=== PATIENT | male | born 1990 | race Caucasian/White ===

== ENCOUNTER 2017-04-21 12:26 | Emergency (ER) | payer OTHER ==
[~2017-04-21] VITALS: Ht 172.7 cm; Wt 101.6 kg
[2017-04-21] MEDS ORDERED: LEXAPRO10 MG ORAL (13:16)
[2017-04-21 13:31] VITALS: BP 125/80
--- NOTE | 2017-04-21 16:36 | Emergency Room Report ---
History of Present Illness General Chief Complaint: General Complaint Source: Patient Present Illness [facility] The patient is a 26 yo M presenting for feeling of depression and anxiety after of his brother which occurred 3 days prior. He denies any medical history including psychiatric history. He states that he has not been able to sleep, lost interest in daily activities, decreased appetite, has been feeling hopeless , and is feeling guilty as this occurred during his own bachelor constitution party. He denies feelings of SI, SOB, CP Allergies: Coded Allergies: No Known Allergies (Unverified , 04/21/17) Patient History Past Medical History: see triage record Pertinent Family History: none Reviewed Nursing Documentation: PMH: Agreed, PSxH: Agreed Nursing Documentation-PMH Past Medical History: No Stated History Review of Systems All Other Systems: negative except mentioned in HPI Physical Exam Vital Signs Date Time Temp Pulse Resp B/P Pulse Ox O2 Delivery O2 Flow Rate FiO2 04/21/17 12:34 97.9 96 18 112/70 98 Room Air Sp02 EP Interpretation: reviewed, normal General Appearance: no apparent distress, alert, GCS 15, non-toxic Head: normocephalic, atraumatic Eyes: bilateral eye normal inspection, bilateral eye PERRL ENT: hearing grossly normal, normal pharynx, no angioedema, normal voice Neck: full range of motion, supple/symm/no masses Respiratory: lungs clear, no rhonchi, no retraction, no accessory muscle use Cardiovascular #1: regular rate, rhythm, no edema, no murmur, no rub Musculoskeletal: back normal, gait/station normal, normal range of motion, non- tender Neurologic: alert, oriented x3, responsive, motor strength/tone normal, sensory intact, speech normal Psychiatric: judgement/insight normal, memory normal, no suicidal/homicidal ideation, no delusions, depressed affect, other - visibly saddened. Crying and sobbing throughout history. Skin: normal color, warm/dry, well hydrated, rash - multipe erythematous papules of the extremities. Excoriation rocha. Non tender. Lymphatic: no adenopathy Medical Decision Making PA Attestation Dr. Whaley is my supervising physician. Patient management was discussed with my supervising physician Diagnostic Impression: Primary Impression: Depression Qualified Codes: F32.9 - Major depressive disorder, single episode, unspecified Additional Impression: Insect bite Qualified Codes: W57.XXXA - Bitten or stung by nonvenomous insect and other nonvenomous arthropods, initial encounter ER Course The patient is a 26 yo M presenting for depression DDx considered but not limited to: depression, anxiety, SI, among others PE: vitals WNL. A&Ox4 Pt sobbing throughout HPI. Appears saddened. Skin has multiple erythematous papules of the extremities. Excoriation rocha. Non tender. The patient states he was traveling in an area with many mosquitoes. [facility] triamcinolone and a trial of lexapro. He was told that the antidepressant medication will most likely not be sufficient and needs to FU with PMD and/or psychiatry. He was told that this medication takes 1-2 months to take effect, if at all. He was given ER precautions. Last Vital Signs Date Time Temp Pulse Resp B/P Pulse Ox O2 Delivery O2 Flow Rate FiO2 04/21/17 13:31 97.9 92 16 125/80 98 Room Air Status: improved Disposition: HOME, SELF-CARE Condition: Improved Scripts Triamcinolone Acet (Triamcinolone Acetonide) 15 Gm Cream..g. 1 APPLIC TP BID, #30 GM Prov: DANO VALVERDE 04/22/17 Escitalopram Oxalate* (LEXAPRO*) 10 Mg Tablet 10 MG ORAL DAILY, #30 TAB Prov: DANO VALVERDE 04/21/17 Referrals: [facility],REFERRING (PCP) Patient Instructions: Depression, Adult Additional Instructions: I discussed my findings with the patient. All questions and concerns have been answered. Treatment and medication compliance have been addressed. I advised the patient that they need to follow up with PMD in 3-5 days. Return to ED if symptoms worsen, new symptoms arise, or if needed for any reason. Patient verbalized understanding of discharge instructions. DANO VALVERDE Apr 21, 2017 16:35
[2017-04-22] MEDS ORDERED: KENALOG 0.025%15 GM TP (15:15)
== END 2017-04-21 13:42 | disposition home or self-care (01) ==
LOC: EMR 13:20
DX: F32.9 Major depressive disorder, single episode, unspecified (principal); F41.9 Anxiety disorder, unspecified; T14.8 Other injury of unspecified body region; W57.XXXA Bitten or stung by nonvenomous insect and other nonvenomous arthropods, initial encounter; Y92.9 Unspecified place or not applicable
CPT/HCPCS: 99284